=== PATIENT | female | born 1965 | race Two or more races ===

== ENCOUNTER 2016-08-01 09:57 | Emergency (ER) | payer OTHER ==
[~2016-08-01] VITALS: Ht 162.6 cm; Wt 93.0 kg
[~2016-08-01 09:57] MED LIST: IBUPROFEN600 MG ORAL; NKM
[2016-08-01] MEDS ORDERED: Metoclopramide 10mg/2ml Inj IVP ONE (10:30)
--- NOTE | 2016-08-01 10:36 | Emergency Room Report ---
History of Present Illness General Chief Complaint: Abdominal Pain Source: Patient Present Illness HPI Patient present with complaints of epigastric abdominal pain There's some radiation to the right upper quadrant Pain started last week patient was seen by primary physician and given antacid medication however as the symptoms continued intermittently patient was concerning came to the ER There was a report of also left upper arm and chest discomfort with eating The symptoms happened last week however has not happened since then Patient has had decreased oral intake and is a diabetic Denies any fevers or chills denies any previous abdominal surgery Allergies: Coded Allergies: No Known Allergies (Unverified , 03/27/16) Patient History Past Medical History: see triage record Pertinent Family History: none Last Menstrual Period: n/a Reviewed Nursing Documentation: PMH: Agreed, PSxH: Agreed Nursing Documentation-PMH Past Medical History: No History, Except For Hx Diabetes: Yes Review of Systems All Other Systems: negative except mentioned in HPI Physical Exam Vital Signs Date Time Temp Pulse Resp B/P Pulse Ox O2 Delivery O2 Flow Rate FiO2 08/01/16 10:14 99.1 84 14 152/90 99 Room Air Sp02 EP Interpretation: reviewed, normal General Appearance: well appearing, no apparent distress Head: normocephalic, atraumatic Eyes: bilateral eye EOMI, bilateral eye PERRL ENT: hearing grossly normal, normal pharynx, TMs + canals normal, uvula midline Neck: full range of motion, supple, no meningismus, no bony tend Respiratory: lungs clear, normal breath sounds, no rhonchi, no respiratory distress, no retraction, no accessory muscle use Cardiovascular #1: normal peripheral pulses, regular rate, rhythm, no edema, no gallop, no JVD, no murmur Gastrointestinal: normal bowel sounds, non tender, soft, no mass, no organomegaly, non-distended, no guarding, no hernia, no pulsatile mass, no rebound Genitourinary: no CVA tenderness Musculoskeletal: normal inspection Neurologic: oriented x3, responsive, display department manager III-XII nml as tested, motor strength/ tone normal, sensory intact Psychiatric: mood/affect normal Skin: normal color, no rash, warm/dry, palpation normal Lymphatic: normal inspection, no adenopathy Medical Decision Making Diagnostic Impression: Primary Impression: Abdominal pain ER Course With the patient's history and examination, multiple differentials considered, including but not limited to , ectopic , ovarian torsion, gastritis, cholecystitis, pancreatitis, appendicitis Patient's discomfort however appears to be mainly epigastric and right upper quadrant At this time liver function tests and other blood work were appropriate patient remains hemodynamically stable Repeat abdominal exam does not reveal any tenderness in the lower quadrant Therefore further imaging was not obtained and the patient will have initial conservative outpatient trial Labs Test 08/01/16 10:29 White Blood Count 8.6 K/UL (4.8-10.8) Red Blood Count 5.04 M/UL (4.20-5.40) Hemoglobin 14.1 G/DL (12.0-16.0) Hematocrit 44.7 % (37.0-47.0) Mean Corpuscular Volume 89 FL (80-99) Mean Corpuscular Hemoglobin 28.0 PG (27.0-31.0) Mean Corpuscular Hemoglobin Concent 31.6 G/DL (32.0-36.0) Red Cell Distribution Width 12.8 % (11.6-14.8) Platelet Count 283 K/UL (150-450) Mean Platelet Volume 8.8 FL (6.5-10.1) Neutrophils (%) (Auto) 71.0 % (45.0-75.0) Lymphocytes (%) (Auto) 21.8 % (20.0-45.0) Monocytes (%) (Auto) 6.0 % (1.0-10.0) Eosinophils (%) (Auto) 0.5 % (0.0-3.0) Basophils (%) (Auto) 0.7 % (0.0-2.0) Urine Color Pale yellow Urine Appearance Clear Urine pH 7 (4.5-8.0) Urine Specific [place] 1.005 (1.005-1.035) Urine Protein Negative (NEGATIVE) Urine Glucose (UA) Negative (NEGATIVE) Urine Ketones 1+ (NEGATIVE) Urine Occult Blood Negative (NEGATIVE) Urine Nitrite Negative (NEGATIVE) Urine Bilirubin Negative (NEGATIVE) Urine Urobilinogen Normal MG/DL (0.0-1.0) Urine Leukocyte Esterase Negative (NEGATIVE) Sodium Level 139 mEQ/L (135-145) Potassium Level 3.7 mEQ/L (3.4-4.9) Chloride Level 94 mEQ/L (98-107) Carbon Dioxide Level 28 mEQ/L (20-30) Anion Gap 17 (5-15) Blood Urea Nitrogen 10 mg/dL (7-23) Creatinine 0.7 mg/dL (0.5-0.9) Estimat Glomerular Filtration Rate > 60 mL/min (>60) Glucose Level 173 mg/dL (74-106) Calcium Level 9.8 mg/dL (8.6-10.2) Total Bilirubin 0.4 mg/dL (0.0-1.2) Aspartate Amino Transf (AST/SGOT) 20 U/L (5-40) Alanine Aminotransferase (ALT/SGPT) 20 U/L (3-33) Alkaline Phosphatase 96 U/L (35-104) Troponin I < 0.30 ng/mL (<=0.30) Total Protein 7.9 g/dL (6.6-8.7) Albumin 4.5 g/dL (3.5-5.2) Globulin 3.4 g/dL Albumin/Globulin Ratio 1.3 (1.0-2.7) Lipase 21 U/L (< 60) EKG Diagnostic Results Rate: normal Rhythm: NSR ST Segments: other Rhythm Strip Diag. Results EP Interpretation: yes Rate: 77 Rhythm: NSR, no PVC's, no ectopy Last Vital Signs Date Time Temp Pulse Resp B/P Pulse Ox O2 Delivery O2 Flow Rate FiO2 08/01/16 10:14 99.1 84 14 152/90 99 Room Air Status: improved Disposition: HOME, SELF-CARE Condition: Improved Scripts Metoclopramide Hcl* (REGLAN*) 5 Mg Tablet 5 MG ORAL EVERY 8 HOURS, #12 TAB Prov: RICO RAY D.O. 08/01/16 Additional Instructions: Patient is provided with the discharge instructions notified to follow up with primary doctor in the next 2-3 days otherwise return to the er with any worsening symptoms. Please note that this report is being documented using DRAGON technology. This can lead to erroneous entry secondary to incorrect interpretation by the dictating instrument. RICO RAY D.O. Aug 01, 2016 10:36
[2016-08-01 10:46] VITALS: BP 135/79
[2016-08-01 10:47] LABS: BASOPHILS % (AUTO) 0.7 % (0.0-2.0); EOSINOPHILS % (AUTO) 0.5 % (0.0-3.0); LYMPHOCYTES % (AUTO) 21.8 % (20.0-45.0); MEAN CORPUSCULAR HGB CONC 31.6 G/DL (32.0-36.0); MEAN CORPUSCULAR VOLUME 89 FL (80-99); MEAN PLATELET VOLUME 8.8 FL (6.5-10.1); PLATELET COUNT 283 K/UL (150-450); RED BLOOD COUNT 5.04 M/UL (4.20-5.40); RED CELL DISTRIBUTION WIDTH 12.8 % (11.6-14.8); WHITE BLOOD COUNT 8.6 K/UL (4.8-10.8)
[2016-08-01 10:50] LABS: APPEARANCE,URINE CLEAR; KETONES,URINE 1+ (NEGATIVE); LEUKOCYTE ESTERASE ,URINE NEGATIVE (NEGATIVE); NITRITE,URINE NEGATIVE (NEGATIVE); PH,URINE 7 (4.5-8.0); PROTEIN,URINE NEGATIVE (NEGATIVE); UROBILINOGEN,URINE NORMAL MG/DL (0.0-1.0)
[2016-08-01 10:59] LABS: ALANINE AMINOTRANSFERASE 20 U/L (3-33); ALBUMIN/GLOBULIN RATIO 1.3 (1.0-2.7); ANION GAP 17 (5-15); ASPARTATE AMINO TRANSFERASE 20 U/L (5-40); CALCIUM 9.8 mg/dL (8.6-10.2); CARBON DIOXIDE 28 mEQ/L (20-30); CHLORIDE 94 mEQ/L (98-107); CREATININE 0.7 mg/dL (0.5-0.9); GLOMERULAR FILTRATION RATE > 60 mL/min (>60); HEMOLYSIS 8; LIPASE 21 U/L (< 60); POTASSIUM 3.7 mEQ/L (3.4-4.9); SODIUM 139 mEQ/L (135-145); TOTAL PROTEIN 7.9 g/dL (6.6-8.7); TROPONIN I < 0.30 ng/mL (<=0.30)
[2016-08-01] MEDS ORDERED: REGLAN5 MG ORAL (11:29)
[2016-08-01] MEDS ORDERED: Mylanta II UD 30ml ORAL ONE (11:30)
--- NOTE | 2016-08-02 21:14 | Cardiology Report ---
APPROVED REPORT EKG Measurement Heart [id number] Normal sinus rhythm Possible Left atrial enlargement Nonspecific T wave abnormality Abnormal ECG
== END 2016-08-01 11:54 | disposition home or self-care (01) ==
LOC: EMR 10:46
DX: R10.13 Epigastric pain (principal); E11.9 Type 2 diabetes mellitus without complications
CPT/HCPCS: 36415; 80053; 81003; 82962; 83690; 84484; 85025; 93005; 96360; 96374; 99284; J2765; J7040